=== PATIENT | female | born 2005 | race Two or more races ===

== ENCOUNTER 2023-07-25 09:04 | Emergency (ER) | payer OTHER ==
[2023-07-25 09:21] VITALS: BP 127/76; PULSE 93; RESP 18; TEMP 99.4; BMI 37.0
[2023-07-25 09:48] LABS: URINE APPEARANCE CLEAR; URINE BILIRUBIN NEGATIVE (NEGATIVE); URINE COLOR YELLOW; URINE GLUCOSE (UA) NEGATIVE (NEGATIVE); URINE KETONE NEGATIVE (NEGATIVE); URINE LEUK ESTERASE NEGATIVE (NEGATIVE); URINE NITRITE NEGATIVE (NEGATIVE); URINE PROTEIN NEGATIVE (NEGATIVE); URINE UROBILINOGEN 0.2 mg/dL (0.2-1.0)
[2023-07-25] MEDS ORDERED: METOCLOPRAMIDE HCL INJECTION 10 MG/2 ML VIAL ONE (11:05)
[2023-07-25] MEDS ORDERED: KETOROLAC TROMETHAMINE 30 MG/1 ML VIAL ONE (11:05)
[2023-07-25] MEDS: KETOROLAC TROMETHAMINE 30 MG/1 ML VIAL IVPUSH ONE (11:19)
[2023-07-25] MEDS: SODIUM CHLORIDE 0.9% 1000 ML INFUS.BAG IV ONE (11:19)
[2023-07-25] MEDS: METOCLOPRAMIDE HCL INJECTION 10 MG/2 ML VIAL IVPB ONE (11:19)
[2023-07-25 11:21] LABS: BASO % 0.7 % (0-2.0); EOS % 0.9 % (0-4.5); HEMATOCRIT 41.4 % (32.4-45.2); HEMOGLOBIN 14.5 GM/dL (10.7-15.3); LYMPH % 27.7 % (8-40); MCH 30.1 pg (25.7-33.7); MCHC 34.9 g/dl (32.0-36.0); MEAN CELL VOLUME 86.2 fl (80-96); MEAN PLT VOLUME 7.9 fl (7.5-11.1); MONO % 7.2 % (3.8-10.2); NEUT % 63.5 % (42.8-82.8); PLATELET COUNT 338 10^3/uL (134-434); RDW 13.9 % (11.6-15.6); WHITE BLOOD COUNT 8.8 K/mm3 (4.0-10.0)
[2023-07-25 11:38] LABS: CALCIUM 10.1 mg/dL (8.5-10.1)
[2023-07-25 11:39] LABS: ALBUMIN 3.8 g/dl (3.4-5.0); BLOOD UREA NITROGEN 7.8 mg/dL (7-18); POTASSIUM 5.5 mmol/L (3.5-5.1)
[2023-07-25 11:42] LABS: CREATININE 0.6 mg/dL (0.55-1.3)
[2023-07-25 11:44] LABS: BILIRUBIN,TOTAL 0.5 mg/dL (0.2-1)
== END 2023-07-25 12:59 | disposition home or self-care (01) ==
LOC: JER 09:04
PROC: 3E0333Z Introduction of Anti-inflammatory into Peripheral Vein, Percutaneous Approach (ICD-10-PCS; principal; 2023-07-25)
PROC: 3E033GC Introduction of Other Therapeutic Substance into Peripheral Vein, Percutaneous Approach (ICD-10-PCS; 2023-07-25)
DX: G43.909 Migraine, unspecified, not intractable, without status migrainosus (principal); H92.03 Otalgia, bilateral; R42 Dizziness and giddiness; R05.9 Cough, unspecified; R09.89 Other specified symptoms and signs involving the circulatory and respiratory systems; Z20.822 Contact with and (suspected) exposure to COVID-19
CPT/HCPCS: 0241U-QW; 36415; 80053; 81003; 84703; 85025; 96374; 96375; 99284-25

== ENCOUNTER 2023-07-31 23:05 | Emergency (ER) | payer OTHER ==
[2023-07-31 23:14] VITALS: BP 115/70; PULSE 87; RESP 20; TEMP 98.5; BMI 39.0
[2023-08-01] MEDS ORDERED: PSEUDOEPHEDRINE HCL 60 MG TABLET ONE (01:01)
[2023-08-01] MEDS: PSEUDOEPHEDRINE HCL 30 MG TABLET PO ONE (01:04)
== END 2023-08-01 01:05 | disposition home or self-care (01) ==
LOC: JER 23:05
DX: R51.9 Headache, unspecified (principal); R09.81 Nasal congestion; J32.9 Chronic sinusitis, unspecified
CPT/HCPCS: 99283-25